=== PATIENT | female | born 1965 | race Hispanic/Latino ===

== ENCOUNTER 2018-01-08 12:10 | Emergency (ER) | payer OTHER ==
[2018-01-08 12:10] VITALS: BMI 31.4
[2018-01-08 13:06] VITALS: BP 158/93; PULSE 85; TEMP 98.7; O2SAT 100
--- NOTE | 2018-01-08 13:20 | ED PDOC ---
Arrival/HPI - General Chief Complaint: Respiratory Distress Time Seen by Provider: 01/08/18 13:15 Historian: Patient - History of Present Illness Narrative History of Present Illness (Text): 01/08/18 13:16 52 year old female, with past medical history of asthma, presents to the Emergency department complaining of chest tightness and shortness of breath since waking up this morning. Patient informs waking up with a sensation of difficulty breathing which worsened with exertions. Patient reports improvement to symptoms after albuterol and nebulizer treatments. Patient states her symptoms her similar to past episodes of asthma exacerbation and requests medical evaluation. Patient reports feeling "sick" over the weekend associated with nasal congestion and cough. Patient denies any other associated somatic complaints. Patient denies any fevers, chills, sore throat, headache, dizziness, abdominal pain, nausea, vomiting, diarrhea, back pain, neck pain, or any other complaints. Time/Duration: 4-6 hours Symptom Onset: Gradual Symptom Course: Improving Quality: Tightness Activities at Onset: Light Context: Home Past Medical History - Provider Review Nursing Documentation Reviewed: Yes - Infectious Disease Hx of Infectious Diseases: None - Tetanus Immunization Tetanus Immunization: Unknown - Cardiac Hx Cardiac Disorders: No - Pulmonary Hx Respiratory Disorders: Yes Hx Asthma: Yes Hx Bronchitis: Yes - Neurological Hx Neurological Disorder: No - HEENT Hx HEENT Disorder: Yes Other/Comment: broke bone under L eye 2014 - Renal Hx Renal Disorder: No - Endocrine/Metabolic Hx Endocrine Disorders: Yes Hx Hyperthyroidism: Yes (has corrected itself & no longer on meds for it) - Hematological/Oncological Hx Blood Disorders: No - Integumentary Hx Dermatological Disorder: No - Musculoskeletal/Rheumatological Hx Musculoskeletal Disorders: Yes Hx Falls: No Other/Comment: R knee sprain, torn ligament R ankle - Gastrointestinal Hx Gastrointestinal Disorders: No - Genitourinary/Gynecological Hx Genitourinary Disorders: No - Psychiatric Hx Psychophysiologic Disorder: No Hx Substance Use: No - Surgical History Hx Cholecystectomy: Yes Other/Comment: D&C 1999 - Anesthesia Hx Anesthesia: No Hx Anesthesia Reactions: No Hx Malignant Hyperthermia: No - Suicidal Assessment Feels Threatened In Home Enviroment: No Family/Social History - Physician Review Nursing Documentation Reviewed: Yes Family/Social History: Unknown Family HX Smoking Status: Never Smoked Hx Alcohol Use: No (on rare occassion) Hx Substance Use: No Hx Substance Use Treatment: No Allergies/Home Meds Allergies/Adverse Reactions: Allergies erythromycin base Allergy (Verified 12/27/17 13:47) VOMITING Home Medications: Home Meds Medication Instructions Recorded Confirmed Albuterol 0.083% [Albuterol 0.083% 3 ml IH PRN PRN 05/29/13 08/22/17 Inhal Joanna (2.5 mg/3 ml) UD] Albuterol Sulfate [Albuterol 0.09 mg IH PRN PRN 05/29/13 08/22/17 Sulfate Hfa] Review of Systems - Physician Review All systems were reviewed & negative as marked: Yes - Review of Systems Constitutional: absent: Fevers ENT: Sinus Congestion. absent: Sore Throat Respiratory: SOB, Cough Cardiovascular: Chest Pain Gastrointestinal: absent: Abdominal Pain, Diarrhea, Nausea, Vomiting Musculoskeletal: absent: Back Pain, Neck Pain Skin: absent: Rash Neurological: absent: Headache, Dizziness Psychiatric: absent: Anxiety, Depression Physical Exam - Physical Exam Narrative Physical Exam (Text): 01/08/18 13:21 Gen: VS reviewed, alert, well developed, well nourished, nontoxic, mild distress. ENT: normal pharynx. Eye: EOMI, PERRL. Neck: no JVD, supple, no adenopathy. CV: regular rate, regular rhythm, no rubs, no murmur, no gallops, S1, S2, pulses equal and strong. Mild tenderness to right chest wall. Pulm: no distress, clear to auscultation, no wheeze, no rhonchi, breath sounds equal, no rales. Abd: soft, nontender, no guarding, no rebound, no rigidity, normal bowel sounds. Ext: no edema. Skin: good color, no rash, no cyanosis. Psych: responds appropriately to questions, normal affect. Neuro: oriented x 3, CN2-12 intact grossly, motor intact, sensation intact. Vital Signs Reviewed: Yes Vital Signs Temp Pulse Resp BP Pulse Ox 01/08/18 12:10 98.7 F 85 18 158/93 H 100 Temperature: Afebrile Blood Pressure: Hypertensive Pulse: Regular Respiratory Rate: Normal Appearance: Positive for: Well-Appearing, Non-Toxic, Comfortable Pain Distress: None Mental Status: Positive for: Alert and Oriented X 3 Medical Decision Making ED Course and Treatment: 01/08/18 13:16 Impression: 52 year old female presents to the Emergency department complaining of shortness of breath and chest tightness. Differential Diagnosis included but are not limited to: Asthma exacerbation Plan: -- Labs -- Chest X-ray -- Rapid Flu A/B -- Reassess and disposition Prior Visits: Notes and results from previous visits were reviewed. Progress Notes: - Scribe Statement The provider has reviewed the documentation as recorded by the Scribe Lien Amador. All medical record entries made by the Scribe were at my direction and personally dictated by me. I have reviewed the chart and agree that the record accurately reflects my personal performance of the history, physical exam, medical decision making, and the department course for this patient. I have also personally directed, reviewed, and agree with the discharge instructions and disposition. Disposition/Present on Arrival - Present on Arrival Any Indicators Present on Arrival: No History of DVT/PE: No History of Uncontrolled Diabetes: No Urinary Catheter: No History of Decub. Ulcer: No History Surgical Site Infection Following: None - Disposition Have Diagnosis and Disposition been Completed?: Yes Diagnosis: Chest wall pain, Elevated blood pressure reading without diagnosis of hypertension Disposition: HOME/ ROUTINE Disposition Time: 17:30 Patient Plan: Discharge Patient Problems: Current Active Problems Problem Status Onset Chest wall pain Acute Elevated blood pressure reading without diagnosis of hypertension Acute Condition: STABLE Discharge Instructions (ExitCare): Costochondritis (DC), Chest Pain (ED) Additional Instructions: Return for any new or worsening symptoms. CAMACHO PUENTE, thank you for letting us take care of you today. Your provider was Dr. Montrell Alfaro and you were treated for chest wall pain. The emergency medical care you received today was directed at your acute symptoms. If you were prescribed any medication, please fill it and take as directed. It may take several days for your symptoms to resolve. Return to the Emergency Department if your symptoms worsen, do not improve, or if you have any other problems. Please contact your doctor or call one of the physicians/clinics you have been referred to that are listed on the Patient Visit Information form that is included in your discharge packet. Bring any paperwork you were given at discharge with you along with any medications you are taking to your follow up visit. Our treatment cannot replace ongoing medical care by a primary care provider outside of the emergency department. Thank you for allowing the [facility] team to be part of your care today. If you had an X-Ray or CT scan: A Radiologist will review the ED reading if any change in treatment is needed we will contact you. If you had a blood, urine, or wound culture: It will take several days for the results, if any change in treatment is needed we will contact you. If you had an STI test: It will take 48 hours for the results. Please call after 1 week if you have not heard back. Prescriptions: Albuterol 0.5% [Albuterol 0.5% Inhal Joanna (2.5 mg/0.5 ml) UD] 0.25 ml IH Q4H #1 neb Albuterol HFA [Ventolin HFA 90 mcg/actuation (8 g)] 1 puff IH Q4H #1 inhaler Referrals: PCP,NO [Primary Care Provider] - Follow up with primary [employer] [facility] [Outside] - Follow up with primary Anayeli Campbell MD [Medical Doctor] - Follow up with primary Forms: [employer] (Indonesian), WORK NOTE
[2018-01-08 14:27] LABS: BASO # 0.01 K/mm3 (0.0-2.0); BASO % 0.2 % (0.0-3.0); EOS # 0.1 (0.0-0.7); EOS % 1.3 % (1.5-5.0); GRAN # 4.02 (1.4-6.5); GRAN % 63.9 % (50.0-68.0); LYMPH # 1.6 (1.2-3.4); LYMPH % 25.2 % (22.0-35.0); MEAN CELL VOLUME 87.7 fl (80.0-105.0); MEAN CORPUSCULAR HEMOGLOBIN 29.2 pg (25.0-35.0); MEAN CORPUSCULAR HGB CONC 33.3 g/dl (31.0-37.0); MEAN PLATELET VOLUME 8.6 fl (7.0-11.0); MONO # 0.6 (0.1-0.6); MONO % 9.4 % (1.0-6.0); RBC 4.79 10^6/uL (3.5-6.1); RED CELL DISTRIBUTION WIDTH 13.1 % (11.5-14.5); WHITE BLOOD COUNT 6.3 10^3/uL (4.5-11.0)
[2018-01-08 14:35] LABS: ALBUMIN 4.2 g/dL (3.0-4.8); ALT/SGPT 15 U/L (7-56); AST/SGOT 28 U/L (14-36); BLOOD UREA NITROGEN 17 mg/dL (7-21); GFR NON-AFRICAN AMERICAN > 60
[2018-01-08 14:47] LABS: TROPONIN I < 0.01 ng/mL
[2018-01-08 14:49] VITALS: RESP 16
[2018-01-08] MEDS ORDERED: Iohexol 350 MG/100 ML VIAL ONE (14:57)
--- NOTE | 2018-01-08 17:00 | CT ---
Date of service: 01/08/2018 PROCEDURE: CT Chest with contrast (Pulmonary Angiogram) HISTORY: pulmonary embolism Relevant medical history: Asthma. COMPARISON: 07/07/2017 single-view chest TECHNIQUE: Axial computed tomography images were obtained of the chest in the pulmonary arterial phase of enhancement. Coronal and sagittal reformatted images were created and reviewed. Intravenous contrast dose: 100 cc Omnipaque 350. Mean Hounsfield value in the main pulmonary artery: 346.39 Radiation dose: Total exam DLP = 474.21 mGy-cm. This CT exam was performed using one or more of the following dose reduction techniques: Automated exposure control, adjustment of the mA and/or kV according to patient size, and/or use of iterative reconstruction technique. FINDINGS: PULMONARY ARTERIES: Unremarkable. No pulmonary embolism. AORTA: No acute findings. No thoracic aortic aneurysm. No atherosclerotic calcification or mural plaque present. LUNGS: Unremarkable. No nodule, mass or pulmonary consolidation. PLEURAL SPACES: Unremarkable. No effusion or pneumothorax. HEART: Unremarkable. No cardiomegaly. No significant pericardial effusion. LYMPH NODES: No lymphadenopathy. BONES, CHEST WALL: Unremarkable. No fracture or destructive lesion OTHER FINDINGS: Unremarkable. IMPRESSION: Unremarkable CT pulmonary angiogram. No pulmonary embolus.
== END 2018-01-08 17:44 | disposition home or self-care (01) ==
LOC: ED 12:10
DX: R07.89 Other chest pain (principal); R03.0 Elevated blood-pressure reading, without diagnosis of hypertension
CPT/HCPCS: 71275; 80053; 84484; 85025; 85378; 87804; 99283; Q9967

== ENCOUNTER 2018-06-16 17:29 | Emergency (ER) | payer SELFPAY ==
[2018-06-16 17:29] VITALS: BMI 31.4
[2018-06-16 17:43] VITALS: PULSE 88; TEMP 98; O2SAT 98
--- NOTE | 2018-06-16 18:33 | ED PDOC ---
Arrival/HPI - General Chief Complaint: Cough, Cold, Congestion Time Seen by Provider: 06/16/18 17:51 Historian: Patient - History of Present Illness Narrative History of Present Illness (Text): 06/16/18 18:35 53 year old female, with past medical history of asthma, presents to emergency department for complaints of cough, congestion, and throat pain for the past week and left foot pain since the last 2 days. Patient denies any fever, chills, chest pain, shortness of breath, or any other somatic complaints. Patient also denies any trauma, injury, or numbness to foot or any diffuse ROM. Past Medical History - Provider Review Nursing Documentation Reviewed: Yes - Infectious Disease Hx of Infectious Diseases: None - Tetanus Immunization Tetanus Immunization: Unknown - Reproductive Menopause: No - Cardiac Hx Cardiac Disorders: No - Pulmonary Hx Respiratory Disorders: Yes Hx Asthma: Yes Hx Bronchitis: Yes - Neurological Hx Neurological Disorder: No - HEENT Hx HEENT Disorder: Yes Other/Comment: broke bone under L eye 2014 - Renal Hx Renal Disorder: No - Endocrine/Metabolic Hx Endocrine Disorders: Yes Hx Hyperthyroidism: Yes (has corrected itself & no longer on meds for it) - Hematological/Oncological Hx Blood Disorders: No - Integumentary Hx Dermatological Disorder: No - Musculoskeletal/Rheumatological Hx Musculoskeletal Disorders: Yes Hx Falls: No Other/Comment: R knee sprain, torn ligament R ankle - Gastrointestinal Hx Gastrointestinal Disorders: No - Genitourinary/Gynecological Hx Genitourinary Disorders: No - Psychiatric Hx Psychophysiologic Disorder: No Hx Substance Use: No - Surgical History Hx Cholecystectomy: Yes Other/Comment: D&C 1999 - Anesthesia Hx Anesthesia: No Hx Anesthesia Reactions: No Hx Malignant Hyperthermia: No - Suicidal Assessment Feels Threatened In Home Enviroment: No Family/Social History - Physician Review Nursing Documentation Reviewed: Yes Family/Social History: Unknown Family HX Smoking Status: Never Smoked Hx Alcohol Use: No (on rare occassion) Hx Substance Use: No Hx Substance Use Treatment: No Allergies/Home Meds Allergies/Adverse Reactions: Allergies erythromycin base Allergy (Verified 12/27/17 13:47) VOMITING Home Medications: Home Meds Medication Instructions Recorded Confirmed Albuterol 0.083% [Albuterol 0.083% 3 ml IH PRN PRN 05/29/13 08/22/17 Inhal Joanna (2.5 mg/3 ml) UD] Albuterol Sulfate [Albuterol 0.09 mg IH PRN PRN 05/29/13 08/22/17 Sulfate Hfa] Review of Systems - Physician Review All systems were reviewed & negative as marked: Yes - Review of Systems ENT: Sinus Congestion, Other (throat pain) Respiratory: Cough Musculoskeletal: Arthralgias (left foot) Physical Exam Vital Signs Reviewed: Yes Vital Signs Temp Pulse Resp BP Pulse Ox 06/16/18 17:39 98 F 88 20 171/102 H 98 Temperature: Afebrile Blood Pressure: Normal Pulse: Regular Respiratory Rate: Normal Appearance: Positive for: Well-Appearing, Non-Toxic, Comfortable Pain Distress: None Mental Status: Positive for: Alert and Oriented X 3 - Systems Exam Head: Present: Atraumatic, Normocephalic Pupils: Present: PERRL Extroacular Muscles: Present: EOMI Conjunctiva: Present: Normal Mouth: Present: Moist Mucous Membranes Pharnyx: Present: ERYTHEMA (mild ) Neck: Present: Normal Range of Motion Respiratory/Chest: Present: Clear to Auscultation, Good Air Exchange. No: Respiratory Distress, Accessory Muscle Use Cardiovascular: Present: Regular Rate and Rhythm, Normal S1, S2. No: Murmurs Abdomen: No: Tenderness, Distention, Peritoneal Signs Back: Present: Normal Inspection Upper Extremity: Present: Normal Inspection. No: Cyanosis, Edema Lower Extremity: Present: Tenderness (mild tenderness to heel of left foot ). No: Edema Neurological: Present: GCS=15, CN II-XII Intact, Speech Normal Skin: Present: Warm, Dry, Normal Color. No: Rashes Lymphatic: Present: Cervical Adenopathy (nontender) Psychiatric: Present: Alert, Oriented x 3, Normal Insight, Normal Concentration Medical Decision Making ED Course and Treatment: 06/16/18 18:49 Impression: 53 year old female presents to emergency department with complaints of cough, congestion, and throat pain since one week and left foot pain for the past 2 days. Plan: -- X-ray left foot -- Influenza -- Rapid strep -- Reassess and disposition Prior Visits: Notes and results from previous visits were reviewed. Progress Notes: 06/16/18 19:00 XR left foot: +heel spur, no fracture, no dislocation, as read by ELISEO. Influenza : (-) Rapid strep : (-) On reevaluation, patient remains awake alert and oriented 3 in no acute distress. Results discussed with the patient. Advised to follow up with the clinic in 1-2 days without fail. Advised to take medication as prescribed, follow-up BP with the clinic. Return to the emergency room at any time for any new or worsening symptoms. Patient states she fully agrees with and understands discharge instructions. States that she agrees with the plan and disposition. Verbalized and repeated discharge instructions and plan. I have given the patient opportunity to ask any additional questions. - RAD Interpretation Radiology Orders: 06/16/18 18:31 FOOT LEFT 3 VIEWS ROUTINE [RAD] Stat - PA / GREASE MAKER / Resident Statement MD/DO has reviewed & agrees with the documentation as recorded. - Scribe Statement The provider has reviewed the documentation as recorded by the Scribe Raad Ferreira All medical record entries made by the Scribe were at my direction and personally dictated by me. I have reviewed the chart and agree that the record accurately reflects my personal performance of the history, physical exam, medical decision making, and the department course for this patient. I have also personally directed, reviewed, and agree with the discharge instructions and disposition. Disposition/Present on Arrival - Present on Arrival Any Indicators Present on Arrival: No History of DVT/PE: No History of Uncontrolled Diabetes: No Urinary Catheter: No History of Decub. Ulcer: No History Surgical Site Infection Following: None - Disposition Have Diagnosis and Disposition been Completed?: Yes Diagnosis: Heel spur, Viral upper respiratory illness Disposition: HOME/ ROUTINE Disposition Time: 19:10 Patient Plan: Discharge Patient Problems: Current Active Problems Problem Status Onset Heel spur Acute Viral upper respiratory illness Acute Condition: STABLE Discharge Instructions (ExitCare): Heel Spurs (DC), Viral Upper Respiratory Infection, Adult (DC) Additional Instructions: Thank you for letting us take care of you today. You were treated for viral URI, heel spur. The emergency medical care you received today was directed at your acute symptoms. If you were prescribed any medication, please fill it and take as directed. It may take several days for your symptoms to resolve. Follow-up your blood pressure with the clinic without fail. Return to the Emergency Department if your symptoms worsen, do not improve, or if you have any other problems. Please call one of the physicians/clinics you have been referred to that are listed on the Patient Visit Information form that is included in your discharge packet. Bring any paperwork you were given at discharge with you along with any medications you are taking to your follow up visit. Our treatment cannot replace ongoing medical care by a primary care provider (PCP) outside of the emergency department. Thank you [facility] to be part of your care today. Prescriptions: Guaifenesin 400 mg PO QID #20 tablet Referrals: FAMILY PROVIDER,NO [Primary Care Provider] - Follow up with primary [facility] [place] [facility] [place] - Follow up with primary Forms: [employer] (Macedonian), WORK NOTE
[2018-06-16 19:07] LABS: INFLUENZA A B NEGATIVE FOR FLU A/B (NEGATIVE)
[2018-06-16 19:53] VITALS: BP 157/92; RESP 18
--- NOTE | 2018-06-16 21:35 | RAD ---
PROCEDURE: Left Foot Radiographs. HISTORY: pain COMPARISON: None available. FINDINGS: BONES: Mild deformity of the 5th proximal phalanx, age indeterminate. Hallux valgus deformity. Remainder the visualized osseous structures appear intact without acute displaced fracture. JOINTS: No dislocation. SOFT TISSUES: Soft tissue swelling. Vascular calcifications no evidence of radiopaque foreign body. OTHER FINDINGS: None. IMPRESSION: Deformity of the 5th proximal phalanx, age indeterminate; correlate with physical exam. Hallux valgus deformity. Soft tissue swelling. Study marked for PA review.
== END 2018-06-16 19:35 | disposition home or self-care (01) ==
LOC: ED 17:29
DX: B34.9 Viral infection, unspecified (principal); M77.32 Calcaneal spur, left foot